=== PATIENT | female | born 2000 | race Caucasian/White ===

== ENCOUNTER 2024-11-24 11:57 | Emergency (ER) | payer MEDICAID ==
[2024-11-24 13:05] LABS: BASOPHILS ABSOLUTE AUTO 0.02 K/uL (0.00-0.20); BASOPHILS PERCENT AUTO 0.2 % (0.0-1.0); EOSINOPHILS ABSOLUTE AUTO 0.19 K/uL (0.00-0.45); EOSINOPHILS PERCENT AUTO 2.0 % (0.0-6.0); IMMATURE GRAN ABSOLUTE AUTO 0.03 K/uL (0.00-0.05); IMMATURE GRAN PERCENT AUTO 0.3 % (0.0-0.4); LYMPHOCYTES ABSOLUTE AUTO 2.13 K/uL (1.00-4.80); LYMPHOCYTES PERCENT AUTO 22.9 % (24.0-44.0); MEAN PLATELET VOLUME 9.3 fL (9.4-12.3); MONOCYTES ABSOLUTE AUTO 0.63 K/uL (0.00-0.80); MONOCYTES PERCENT AUTO 6.8 % (0.0-8.0); NEUTROPHILS ABSOLUTE AUTO 6.32 K/uL (1.80-7.70); NEUTROPHILS PERCENT AUTO 67.8 % (41.0-71.0); NRBC ABSOLUTE 0.00 K/uL (0.00-0.02); NRBC PERCENT 0.0 /100WBC (0.0-0.2); PLATELET COUNT,PLT 211 K/uL (150-400); RED BLOOD CELL COUNT 4.24 M/uL (4.10-5.30); WHITE BLOOD CELL COUNT,WBC 9.32 K/uL (3.9-11.3)
[2024-11-24 13:28] LABS: A/G RATIO 1.3 (0.9-1.6); ALANINE AMINOTRANSFERASE,ALT 8.0 IU/L (14-63); ASPARTATE AMNIOTRANSFERASE,AST 12.0 IU/L (15-37); BILIRUBIN TOTAL 0.4 mg/dL (0.2-1.0); BLOOD UREA NITROGEN,BUN 8.0 mg/dL (7.0-18.0); CARBON DIOXIDE,CO2 23.8 mmol/L (21.0-32.0); CHLORIDE,CL 104.0 mmol/L (98-107); CREATININE 0.5 mg/dL (0.6-1.0); EST CRCL DRUG DOSING (CG) 175.02 mL/min; GLUCOSE RANDOM 88.0 mg/dL (74-106); POTASSIUM,K 4.0 mmol/L (3.5-5.1); PROTEIN TOTAL,TP 6.6 g/dL (6.4-8.2); SODIUM,NA 139.0 mmol/L (136-145)
[2024-11-24 13:30] LABS: LACTIC ACID 0.9 mmol/L (0.4-2.0)
[2024-11-24 13:33] LABS: ESTIMATED GFR 134.0 mL/min (>60)
[2024-11-24 14:00] LABS: APPEARANCE,URINE CLEAR; GLUCOSE,URINE NEGATIVE (NEGATIVE); OCCULT BLOOD,URINE SMALL (NEGATIVE)
[2024-11-24 14:13] LABS: EPITHELIAL CELLS,URINE MODERATE (NONE-FEW)
[2024-11-24] MEDS: Ondansetron 4 MG/2 ML SDV IVPUSH ONE (14:46)
== END 2024-11-24 16:42 | disposition home or self-care (01) ==
LOC: MW.ED 11:57
DX: O36.4XX0 Maternal care for intrauterine death, not applicable or unspecified (principal); Z75.3 Unavailability and inaccessibility of health-care facilities; Z3A.01 Less than 8 weeks gestation of pregnancy
CPT/HCPCS: 36415; 76801; 80053; 81001; 83605; 83690; 83735; 85025; 87086; 96361; 96374; 96375; 96376; 99284; A9270; J2270; J2405; J7030; 99283

== ENCOUNTER 2024-12-01 08:18 | Day surgery (SDC) | payer MEDICAID ==
[~2024-12-01 08:18] MED LIST: Albuterol 0.083% 2.5 MG/3 ML Neb Soln NEB PRN; Naloxone 0.4 MG/ML SDV IVPUSH PRN; Ondansetron 4 MG/2 ML SDV IVPUSH PRN; fentaNYL 50 MCG/ML SDV IVPUSH PRN
[2024-12-01] MEDS ORDERED: fentaNYL 100 MCG/2 ML SDV ONE (08:53)
[2024-12-01] MEDS ORDERED: Midazolam 1 MG/ML 2 ML SDV ONE (08:53)
[2024-12-01] MEDS ORDERED: Ondansetron 4 MG/2 ML SDV ONE ×2 (08:53→10:23)
[2024-12-01] MEDS ORDERED: Propofol 200 MG/20 ML SDV ONE (08:55)
[2024-12-01] MEDS: Lactated Ringers 1,000 ML IV SCH (08:55)
[2024-12-01 09:02] LABS: MEAN PLATELET VOLUME 9.4 fL (9.4-12.3); NRBC ABSOLUTE 0.00 K/uL (0.00-0.02); NRBC PERCENT 0.0 /100WBC (0.0-0.2); PLATELET COUNT,PLT 204 K/uL (150-400); RED BLOOD CELL COUNT 4.32 M/uL (4.10-5.30); WHITE BLOOD CELL COUNT,WBC 7.42 K/uL (3.9-11.3)
[2024-12-01] MEDS ORDERED: ePHEDrine 50 MG/ML SDV ONE (09:03)
[2024-12-01] MEDS ORDERED: propofoL 500 MG/50 ML 50 ML ONE (09:42)
[2024-12-01] MEDS ORDERED: Lidocaine 2% 11 ML Jelly Filled Syringe ONE (10:12)
[2024-12-01] MEDS ORDERED: Dexamethasone 4 MG/ML 5 ML MDV ONE (10:23)
[2024-12-01] MEDS ORDERED: Ketorolac 30 MG/ML SDV ONE (10:23)
[2024-12-01] MEDS ORDERED: dexmedeTOMIDine HCl 200 MCG/2 ML SDV ONE (10:34)
== END 2024-12-01 11:30 | disposition home or self-care (01) ==
LOC: MW.SDS 08:18
PROVIDERS: ATTEND Obstetrics & Gynecology
DX: O02.1 Missed abortion (principal); F17.290 Nicotine dependence, other tobacco product, uncomplicated; Z88.8 Allergy status to other drugs, medicaments and biological substances; Z91.040 Latex allergy status; Z91.018 Allergy to other foods; Z79.899 Other long term (current) drug therapy
CPT/HCPCS: 36415; 59820; 85027; A9270; J1100; J1308; J1885; J2003; J2250; J2405; J2704; J2765; J3010; J7120; 01965; J3490